=== PATIENT | female | born 1965 | race Caucasian/White ===

== ENCOUNTER 2017-04-22 08:55 | Day surgery (SDC) | payer OTHER ==
[~2017-04-22] VITALS: Ht 157.5 cm; Wt 109.0 kg
[~2017-04-22 08:55] MED LIST: ADVAIR; ALBU90OI INH; ALBU90OI6 INH; ALBUTEROL; AMOCLA875 PO; ARIP10 PO; ASCO1ER PO; ASCO500 PO; ATEN25 PO; ATEN50; Advair Hfa 230-12 GM; BENZ100A; BENZ100A PO; BUPR150ER; CARV6.25 PO; CEPH500 PO; CETI5; CHLO25 PO; CIPR500 PO; CITA20; CITA20 PO; CLIN300 PO; CLON.1 PO; CLON.2 PO; CLON2; COMBIVENT RESPIM4 GM; CONEST.9; CRUTCH4 USE; CYCL10; CYCL10 PO; DESV50 PO; DIAZ5; DOXY100 PO; DULO60 PO; ERGO400 PO; ESCI10; ESCI20 PO; FISH1000 PO; FLUSAL2505 INH; FURO40 PO; Flonase 0.05% N16 GM; Fortamet500 MG; GUAPSEER PO; HYDACE10B; HYDACE5 PO; HYDACE7.5 PO; HYDHCL25; HYDHCL25 PO; HYDPAM25 PO; HYDPAM50; HYDPAM50 PO; IBUP800; IBUP800 PO; Ipratr-Albuterol3 ML IH; Keflex500 MG PO; LOPE2C PO; MELO7.5 PO; METPRE4DP PO; MINO100 PO; MUPI2TO TOP; Multivitamins1 EACH PO; NAPR500 PO; NAPR550 PO; ONDA4 PO; OXYACE5T PO; OXYC30 PO; OXYCODONE; PHENA200 PO; POTCHL20ER PO; PRED10 PO; PROACE100 PO; PROM25 PO; PSEU120ER PO; RXHYDACE PO; RXONDA4ODT MM; RXOXYACE PO; RXPHEN200 PO; RXPROACE PO; RXTRAM50 PO; SILSUL1TC TOP; TIOT18; TRAM50 PO; Ultram50 MG PO; VARE1 PO; Vibramycin100 MG PO; Voltaren100 GM; WATER PILL; [UNRECOGNIZED DRUG - REMARK]; [UNRECOGNIZED DRUG - REMARK]; [UNRECOGNIZED DRUG - REMARK]
== END 2017-04-22 13:39 | disposition home or self-care (01) ==
LOC: ORSCSDS 08:55
PROVIDERS: Orthopaedic Surgery
PROC: 0RBJ4ZZ Excision of Right Shoulder Joint, Percutaneous Endoscopic Approach (ICD-10-PCS; principal; 2017-04-22 10:25)
PROC: 0LQ14ZZ Repair Right Shoulder Tendon, Percutaneous Endoscopic Approach (ICD-10-PCS; principal; 2017-04-22 10:25)
PROC: 0RNJ4ZZ Release Right Shoulder Joint, Percutaneous Endoscopic Approach (ICD-10-PCS; principal; 2017-04-22 10:25)
DX: M75.121 Complete rotator cuff tear or rupture of right shoulder, not specified as traumatic (principal); M75.21 Bicipital tendinitis, right shoulder; M75.41 Impingement syndrome of right shoulder; J44.9 Chronic obstructive pulmonary disease, unspecified; J45.909 Unspecified asthma, uncomplicated; I10 Essential (primary) hypertension; K21.9 Gastro-esophageal reflux disease without esophagitis; G47.33 Obstructive sleep apnea (adult) (pediatric); E66.01 Morbid (severe) obesity due to excess calories; Z68.41 Body mass index [BMI] 40.0-44.9, adult; Z79.899 Other long term (current) drug therapy; Z87.891 Personal history of nicotine dependence
CPT/HCPCS: C1713; J0171; J0690; J1100; J1885; J2250; J2405; J3010; J7120

== ENCOUNTER → 2017-08-09 | Outpatient (CLI) | payer OTHER | LOC: LAB SHORT 12:59 → LAB 12:59 | DX: L08.9 Local infection of the skin and subcutaneous tissue, unspecified (principal) | CPT/HCPCS: 87070; 87205 ==

== ENCOUNTER → 2017-11-18 | Outpatient (CLI) | payer OTHER ==
[2017-11-18 18:00] LABS: Bilirubin, Urine Neg (Neg); Blood, Urine Neg (Neg); Glucose Qualitative, Urine Neg (Neg); Ketones, Urine 1+ (Neg); Leukocyte Esterase, Urine Neg (Neg); Nitrite, Urine Neg (Neg); Protein, Urine 1+ (Neg); Urobilinogen, Urine NORM (Normal)
[2017-11-18 18:09] LABS: Appearance, Urine Cloudy (Clear); Color, Urine Yellow (P-Yellow)
[2017-11-18 18:10] LABS: Amorphous Heavy (0-Heavy); Bacteria Few /hpf; Calcium Oxalate Crystals Few /hpf; Mucus Heavy (0-Heavy); Red Blood Cells, Urine 0-2 /hpf (0-2); Squamous Epithelial Cells Many /hpf (Few); White Blood Cells, Urine 0-2 /hpf (0-5)
== END ==
LOC: LAB 17:45 → LAB SHORT 17:45
PROVIDERS: Nurse Practitioner Family
DX: R35.0 Frequency of micturition (principal)
CPT/HCPCS: 81001

== ENCOUNTER → 2018-08-28 | Outpatient (CLI) | payer OTHER ==
[2018-08-31 15:07] LABS: HPV 16 Negative (Negative); HPV 18 Negative (Negative); HPV OTHER HR TYPES Negative (Negative)
== END | disposition home or self-care (01) ==
LOC: LAB 13:18 → LAB SHORT 13:18
PROVIDERS: Nurse Practitioner Family
DX: Z01.419 Encounter for gynecological examination (general) (routine) without abnormal findings (principal)
CPT/HCPCS: 87624; G0123

== ENCOUNTER → 2018-09-28 | Outpatient (CLI) | payer OTHER ==
[~2018-09-28] MED LIST changes: +ADVAIR INH; -COMBIVENT RESPIM4 GM; +COMBIVENT RESPIM4 GM INH; -FLUSAL2505 INH; +METF500 PO; +Neurontin 300300 MG PO; +OXYC30ER PO; +Percocet 10-321 EACH PO; +SUBOXONE PO; -TIOT18; +TIOT18 INH; +TRAZ100 PO; +XARELTO15 MG PO
[2018-09-30 10:06] LABS: COTININE Negative ng/mL (Cutoff=300)
== END | disposition home or self-care (01) ==
LOC: LAB SHORT 13:45 → LAB 13:45
PROVIDERS: Orthopaedic Surgery
DX: F17.200 Nicotine dependence, unspecified, uncomplicated (principal)

== ENCOUNTER 2018-11-05 08:24 | Day surgery (SDC) | payer OTHER ==
[~2018-11-05] VITALS: Ht 160 cm; Wt 100.0 kg
[~2018-11-05 08:24] MED LIST changes: -OXYC30ER PO; -Percocet 10-321 EACH PO; -XARELTO15 MG PO
--- NOTE | 2018-11-05 09:15 | NUR ---
Ambulatory in Day Surgery. Surgical site prepped with 2% Chlorhexidine cloth wipe. History, Chart, Medications and Allergies reviewed before start of procedure. Lungs clear T/O to Auscultation. Patient confirms NPO status and agrees with scheduled surgery. Patient reports completing Chlorhexadine shower X2 prior to admission to hospital.
--- NOTE | 2018-11-05 11:25 | NUR ---
11/05/18 1125 Darryl Gutierrez POTENTIAL TIME SURGEON COULD LEAVE [id number]
--- NOTE | 2018-11-05 12:30 | NUR ---
CARE TO YAEL NGUYEN RN XRAY DONE
--- NOTE | 2018-11-05 13:00 | NUR ---
1230-ASSUMED CARE OF PATIENT. STABLE. TRANSFERRED TO SURGICAL FLOOR.
--- NOTE | 2018-11-05 18:38 | NUR ---
SHIFT SUMMARY PT A&OX4, VSS, CBG AC CNI, S/P R TKA, AQUACEL & JURGEN WRAP. PAIN MANAGED PER EMAR. APRYL PO, DENIES N&V. AMB W/FWW & GB TO BRP/CHAIR/BED. VOIDING WELL. WCTM & TX PER EMAR UNTIL REPORT GIVEN TO ONCOMING NOC RN.
--- NOTE | 2018-11-06 02:08 | NUR ---
ASSUMED CARE OF PT. PT ALERT, ANXIOUS, SUPPORT AND REASSURANCE GIVEN. PT REP PAIN 11/07. PT MEDICATED PER EMAR. PT DENIES FURTHER NEEDS AT THIS TIME, WILL CONT TO MONITOR.
[2018-11-06 03:50] LABS: BASOPHILS ABSOLUTE AUTO 0.04 K/mm3 (0.00-0.23); BASOPHILS PERCENT AUTO 0 % (0-2); EOSINOPHILS ABSOLUTE AUTO 0.05 K/mm3 (0.00-0.68); EOSINOPHILS PERCENT AUTO 1 % (0-6); Hematocrit 35.6 % (33.0-51.0); Hemoglobin 11.7 g/dL (11.5-16.0); IMMATURE GRAN ABSOLUTE AUTO 0.04 K/mm3 (0.00-0.10); IMMATURE GRAN PERCENT AUTO 0 % (0-1); LYMPHOCYTES ABSOLUTE AUTO 1.53 K/mm3 (0.84-5.20); LYMPHOCYTES PERCENT AUTO 16 % (21-46); MONOCYTES ABSOLUTE AUTO 0.85 K/mm3 (0.16-1.47); MONOCYTES PERCENT AUTO 9 % (4-13); Mean Corpuscular HGB 28.5 pg (26.0-34.0); Mean Corpuscular HGB Conc 32.9 g/dL (31.5-36.5); Mean Corpuscular Volume 87 fL (80-100); NEUTROPHILS ABSOLUTE AUTO 7.34 K/mm3 (1.96-9.15); NEUTROPHILS PERCENT AUTO 75 % (41-73); Platelet Count 311 K/mm3 (150-400); RDW Standard Deviation 44.6 fL (35.1-46.3); Red Blood Cell Count 4.11 M/mm3 (3.80-5.20); White Blood Cell Count 9.85 K/mm3 (4.00-11.30)
[2018-11-06 04:09] LABS: Anion Gap 9 mmol/L (6-16); Blood Urea Nitrogen 17 mg/dL (8-24); CO2, Blood 25 mmol/L (21-32); Calcium, Blood 8.2 mg/dL (8.5-10.1); Chloride, Blood 102 mmol/L (98-108); Creatinine, Blood 0.95 mg/dL (0.40-1.00); Glomerular Filtration Rate >60 (60-); Glucose, Blood 138 mg/dL (70-99); Magnesium, Blood 1.7 mg/dL (1.6-2.4); Potassium, Blood 4.1 mmol/L (3.5-5.5); Sodium, Blood 136 mmol/L (136-145)
--- NOTE | 2018-11-06 05:40 | NUR ---
POD 1 S/P RIGHT TKA. PT VSS T/O NIGHT. DRESSINGS CDI. PAIN MGD PER EMAR W/REP RELIEF. PT UP OOB W/FWW+SBA; APRYL WELL. PT REMAINS ANXIOUS AT TIMES R/T PAIN, SUPPORT AND EDUCATION PROVIDED PRN T/O NIGHT. PT USING CALL LIGHT FOR ASSISTANCE, WILL CONT TO MONITOR UNTIL REP GIVEN TO ONCOMING RN.
[2018-11-06] MEDS ORDERED: OXYC30ER PO (11:33)
[2018-11-06] MEDS ORDERED: XARELTO15 MG PO (11:34)
[2018-11-06] MEDS ORDERED: Percocet 10-321 EACH PO (11:34)
--- NOTE | 2018-11-06 13:44 | NUR ---
Pt was sitting in her recliner alert and oriented. Pt provided space to reflect on her life. She discusses family dynamics, grief experiences, and her physical challenges. Pt able to verbalize her zunilda and how it helps her cope with her past challenges. Pt currently is connected to a local confucianist where she finds spiritual support. Pt verbalizes gratitude for parental support through her struggles. Her goal is to get both her knees done and find work to support herself. I offered to keep the pt in my prayers. I will remain available.
--- NOTE | 2018-11-06 15:24 | NUR ---
DISCHARGE: PT EATING AND DRINKING WELL. VOIDING, PASSING GAS. PT REPORTS PAIN MUCH BETTER THAN THIS AM. TOLERABLE ON PO PAIN MEDICATION. PT BEEN CLEARED BY THERAPY TO GO HOME. PT/FAMILY REPORTS UNDERSTANDING OF DISCHARGE INSTRUCTIONS INCLUDING USING WALKER WITH ALL ACTIVITY AND TAKING SHORT FREQUENT WALKS. PT SENT WITH SCRIPTS, ICE MACHINE, DRESSING SUPPLIES. PT REPORTS HAVING APPR EQUIP AT HOME. IV OUT EARLIER NO OTHER IV'S IN PLACE. TIMES OF LAST DOSE OF MEDICATION WRITTEN ON MEDICATION LIST FOR PT.
== END 2018-11-06 15:30 | disposition home or self-care (01) ==
LOC: ORSCMMR 08:24 → ORD 10:00 → SURS 12:54 → ORSCMMR 11-06 15:30
PROVIDERS: Orthopaedic Surgery
PROC: 0SRC0JA Replacement of Right Knee Joint with Synthetic Substitute, Uncemented, Open Approach (ICD-10-PCS; principal; 2018-11-05 10:00)
DX: M17.11 Unilateral primary osteoarthritis, right knee (principal); Z01.818 Encounter for other preprocedural examination; I10 Essential (primary) hypertension; J44.9 Chronic obstructive pulmonary disease, unspecified; G47.33 Obstructive sleep apnea (adult) (pediatric); E11.9 Type 2 diabetes mellitus without complications; E78.5 Hyperlipidemia, unspecified; Z79.899 Other long term (current) drug therapy; E66.01 Morbid (severe) obesity due to excess calories; Z68.41 Body mass index [BMI] 40.0-44.9, adult
CPT/HCPCS: 36415; 73560-RT; 80048; 82947; 83735; 85025; 86850; 86900; 86901; 88300; 94760; 97110; 97116; 97161; 97530; C1776; J0171; J0690; J0735; J1170; J1885; J2250; J2405; J2704; J2795; J7120

== ENCOUNTER 2019-02-09 06:44 | Day surgery (SDC) | payer OTHER ==
[~2019-02-09] VITALS: Ht 157.5 cm; Wt 102.6 kg
[~2019-02-09 06:44] MED LIST changes: +OXYC30ER PO; +Percocet 10-321 EACH PO; +XARELTO15 MG PO; +Zantac150 MG PO
--- NOTE | 2019-02-09 07:03 | NUR ---
History, Chart, Medications and Allergies reviewed before start of procedure. Patient confirms NPO status and agrees with scheduled surgery. Lungs clear T/O to Auscultation. Pre-Op teaching done. Pt verbalizes understanding. Patient reports completing Chlorhexadine shower X2 prior to admission to hospital. NO JEWELRY, HEARING DEVICES, CONTACTS PRESENT AT TIME OF SURGERY. PATIENT STATES SHE PLACED HER GLASSES IN WITH HER BELONGINGS IN HER BAG.
[2019-02-09] MEDS ORDERED: METF500 PO (07:13)
--- NOTE | 2019-02-09 07:47 | NUR ---
PATIENT IS CONSIDERED LOW RISK AND WILL NOT BE PLACED IN ISOLATION. TWO NEGATIVE NARES SWABS COMPLETED AND TODAY WE COMPLETED A SWAB OF HER THROAT SO THAT SHE CAN OFFICIALLY BE CLEARED FOR FUTURE VISITS.
--- NOTE | 2019-02-09 08:11 | NUR ---
PATIENT UP TO BR FOR UNMEASURED VOID.
--- NOTE | 2019-02-09 11:30 | NUR ---
PT TRANSFERRED TO ROOM ON OWN BED, A/0 X 4, PLEASANT, DENIES N/V, RATE PAIN AT 8/10. WILL PROVIDE ANALGESIA PER MAR. PT'S MOTHER WITH PT. POST OP VS COMMENCED AND STABLE.
--- NOTE | 2019-02-09 18:03 | NUR ---
summary: vss, no acute changes, a/0 x 4, pleasant/cooperative. pt tolerating po intake, voiding >400 ml this shift. Patient worked with PT x 1 this afternoon, ambulated in hallway with RN x 1, up to bathroom x 3. pt rates pain at 6-8/10, reassessed at 5/10 at lowest following analgesia per mar. Operative knee dressing c/d/i, no shadowing. pt states she is pleased with her condition with this surgery. pt up in chair for meals.
--- NOTE | 2019-02-10 05:18 | NUR ---
SUMMARY: POD [address] SORENSEN. VSS, AFEBRILE, ROOM AIR. TOLERATING REG DIET, VOIDING AND UP IN ROOM WITH 1 ASSIST USING GB AND FWW. PT PAIN CONTROLLED WITH 10MG OXYCODONE X3 THIS SHIFT AND 1MG DILAUDID THIS SHIFT. PT APPEARS ANXIOUS AND EMOTIONAL AT TIMES WITH PAIN AND ADL'S BUT IS EASILY REASSURED. ANTICIPATE PT/OT AND OOB ACTIVITY WITH PROBABLE DC HOME LATER THIS DAY.
[2019-02-10 05:40] LABS: BASOPHILS ABSOLUTE AUTO 0.02 K/mm3 (0.00-0.23); BASOPHILS PERCENT AUTO 0 % (0-2); EOSINOPHILS PERCENT AUTO 0 % (0-6); Hematocrit 34.8 % (33.0-51.0); Hemoglobin 11.5 g/dL (11.5-16.0); IMMATURE GRAN ABSOLUTE AUTO 0.07 K/mm3 (0.00-0.10); IMMATURE GRAN PERCENT AUTO 1 % (0-1); LYMPHOCYTES PERCENT AUTO 14 % (21-46); MONOCYTES ABSOLUTE AUTO 0.92 K/mm3 (0.16-1.47); MONOCYTES PERCENT AUTO 6 % (4-13); Mean Corpuscular Volume 88 fL (80-100); Mean Platelet Volume 8.9 fL (9.1-12.4); NEUTROPHILS ABSOLUTE AUTO 12.31 K/mm3 (1.96-9.15); NEUTROPHILS PERCENT AUTO 80 % (41-73); Platelet Count 359 K/mm3 (150-400); RDW Coefficient Variation 13.7 % (11.7-14.2); RDW Standard Deviation 44.2 fL (35.1-46.3); Red Blood Cell Count 3.97 M/mm3 (3.80-5.20); White Blood Cell Count 15.42 K/mm3 (4.00-11.30)
[2019-02-10 06:05] LABS: Anion Gap 7 mmol/L (6-16); Blood Urea Nitrogen 12 mg/dL (8-24); Bun/Creatinine Ratio 14.8 (12.0-20.0); CO2, Blood 26 mmol/L (21-32); Calcium, Blood 8.6 mg/dL (8.5-10.1); Chloride, Blood 107 mmol/L (98-108); Creatinine, Blood 0.81 mg/dL (0.40-1.00); Glomerular Filtration Rate >60 (60-); Glucose, Blood 136 mg/dL (70-99); Potassium, Blood 3.9 mmol/L (3.5-5.5); Sodium, Blood 140 mmol/L (136-145)
[2019-02-10] MEDS ORDERED: Percocet 5-3251 EACH PO (12:14)
[2019-02-10] MEDS ORDERED: Celebrex200 MG PO (12:16)
[2019-02-10] MEDS ORDERED: ASPI81CH PO (12:16)
--- NOTE | 2019-02-10 13:31 | NUR ---
DISCHARGE PT VERY ANXIOUS AT TIMES R/T D/C. CLEARED THERAPY, TOLERATING DIET, VOIDING, NO LONGER CRYING IN REGAURDS TO PAIN BUT STILL RATES PAIN 8-9/10. SCRIPTS AND DRSGS GIVEN. PT TO EMPLOYMENT LEGAL ASSISTANT EXTENDED RELEASE OXYCOTIN FROM DR SORENSEN OFFICE PER ARRANGEMENTS BETWEEN HER AND
== END 2019-02-10 13:15 | disposition home or self-care (01) ==
LOC: ORSCMMR 06:44 → ORD 08:15 → SURS 11:20 → ORSCMMR 02-10 13:15
PROVIDERS: Orthopaedic Surgery
PROC: 0SRD0JA Replacement of Left Knee Joint with Synthetic Substitute, Uncemented, Open Approach (ICD-10-PCS; principal; 2019-02-09 08:15)
DX: M17.12 Unilateral primary osteoarthritis, left knee (principal); Z01.818 Encounter for other preprocedural examination; E66.9 Obesity, unspecified; Z68.41 Body mass index [BMI] 40.0-44.9, adult; Z87.891 Personal history of nicotine dependence; Z79.899 Other long term (current) drug therapy
CPT/HCPCS: 36415; 73560-LT; 80048; 82947; 85025; 86850; 86900; 86901; 87081; 88300; 97110; 97116; 97161; 97530; C1776; J0171; J0690; J0735; J1100; J1170; J1885; J2250; J2405; J2704; J2795; J3010; J7120; Q0163

== ENCOUNTER → 2019-07-05 | Outpatient (CLI) | payer OTHER ==
[~2019-07-05] MED LIST changes: +ASPI81CH PO; +Celebrex200 MG PO; +Percocet 5-3251 EACH PO
[2019-07-05 16:23] LABS: Source, Urine Clean Catch
[2019-07-05 18:06] LABS: Bilirubin, Urine Neg (Neg); Blood, Urine Neg (Neg); Glucose Qualitative, Urine Neg (Neg); Ketones, Urine Neg (Neg); Leukocyte Esterase, Urine Neg (Neg); Nitrite, Urine Neg (Neg); Protein, Urine Neg (Neg); Specific Gravity, Urine 1.015 (1.003-1.022); Urobilinogen, Urine NORM (Normal)
[2019-07-05 18:20] LABS: Appearance, Urine Clear (Clear); Color, Urine Yellow (P-Yellow)
== END | disposition home or self-care (01) ==
LOC: LAB SHORT 16:22 → OLS 16:22
PROVIDERS: Nurse Practitioner Family
DX: R30.0 Dysuria (principal); R35.0 Frequency of micturition
CPT/HCPCS: 81003

== ENCOUNTER → 2020-01-15 | Outpatient (CLI) | payer OTHER ==
[2020-01-15 14:05] LABS: BASOPHILS ABSOLUTE AUTO 0.06 K/mm3 (0.00-0.23); BASOPHILS PERCENT AUTO 1 % (0-2); EOSINOPHILS ABSOLUTE AUTO 0.12 K/mm3 (0.00-0.68); EOSINOPHILS PERCENT AUTO 2 % (0-6); Hematocrit 41.3 % (33.0-51.0); Hemoglobin 12.9 g/dL (11.5-16.0); IMMATURE GRAN ABSOLUTE AUTO 0.01 K/mm3 (0.00-0.10); IMMATURE GRAN PERCENT AUTO 0 % (0-1); LYMPHOCYTES ABSOLUTE AUTO 1.65 K/mm3 (0.84-5.20); LYMPHOCYTES PERCENT AUTO 26 % (21-46); MONOCYTES ABSOLUTE AUTO 0.36 K/mm3 (0.16-1.47); MONOCYTES PERCENT AUTO 6 % (4-13); Mean Corpuscular HGB 27.6 pg (26.0-34.0); Mean Corpuscular HGB Conc 31.2 g/dL (31.5-36.5); Mean Corpuscular Volume 88 fL (80-100); Mean Platelet Volume 9.1 fL (9.1-12.4); NEUTROPHILS ABSOLUTE AUTO 4.18 K/mm3 (1.96-9.15); NEUTROPHILS PERCENT AUTO 66 % (41-73); Platelet Count 367 K/mm3 (150-400); RDW Coefficient Variation 13.9 % (11.7-14.2); Red Blood Cell Count 4.68 M/mm3 (3.80-5.20); White Blood Cell Count 6.38 K/mm3 (4.00-11.30)
[2020-01-15 14:18] LABS: Alanine Aminotransfer (ALT/SGP 36 U/L (12-78); Albumin, Blood 3.6 g/dL (3.4-5.0); Albumin/Globulin Ratio 0.9 (0.8-1.8); Alk Phos 132 U/L (50-136); Anion Gap 5 mmol/L (6-16); Aspartate Aminotrans (AST/SGOT 25 U/L (12-37); Bilirubin, Total 0.5 mg/dL (0.1-1.0); Blood Urea Nitrogen 16 mg/dL (8-24); Bun/Creatinine Ratio 16.2 (12.0-20.0); CO2, Blood 31 mmol/L (21-32); Chloride, Blood 104 mmol/L (98-108); Creatinine, Blood 0.99 mg/dL (0.40-1.00); Globulin, Blood 3.9 g/dL (2.2-4.0); Glomerular Filtration Rate >60 (60-); Glucose, Blood 103 mg/dL (70-99); Potassium, Blood 3.9 mmol/L (3.5-5.5); Sodium, Blood 140 mmol/L (136-145); Total Protein, Blood 7.5 g/dL (6.4-8.2); Troponin I <0.015 ng/mL (0.000-0.040)
== END | disposition home or self-care (01) ==
LOC: LAB 13:10 → LAB SHORT 13:10
PROVIDERS: Nurse Practitioner Family
DX: R03.0 Elevated blood-pressure reading, without diagnosis of hypertension (principal); R07.89 Other chest pain; R06.02 Shortness of breath; R60.0 Localized edema
CPT/HCPCS: 80053; 83880; 84484; 85025; 85379

== ENCOUNTER → 2020-06-23 | Outpatient (CLI) | payer OTHER | END | disposition home or self-care (01) | LOC: LAB SHORT 10:06 → LAB 10:06 | DX: B37.0 Candidal stomatitis (principal) | CPT/HCPCS: 87102; 87106 ==

== ENCOUNTER → 2020-08-17 | Outpatient (CLI) | payer OTHER ==
[2020-08-18 10:51] LABS: Candida species (DNA Probe) Negative (NEGATIVE); G. vaginalis (DNA Probe) Negative (NEGATIVE); T. vaginalis (DNA Probe) Negative (NEGATIVE)
== END ==
LOC: LAB SHORT 11:00 → LAB 11:00
PROVIDERS: Nurse Practitioner Family
DX: R10.2 Pelvic and perineal pain (principal); R30.0 Dysuria
CPT/HCPCS: 87086; 87480; 87510; 87660

== ENCOUNTER → 2020-08-17 | Outpatient (CLI) | payer OTHER | LOC: LAB SHORT 10:40 → PLD 10:40 | DX: R30.0 Dysuria (principal) | CPT/HCPCS: 87086 ==

== ENCOUNTER 2021-03-01 17:43 | Emergency (ER) | payer OTHER ==
[~2021-03-01] VITALS: Ht 160 cm; Wt 111.1 kg
[2021-03-01 18:31] LABS: BASOPHILS ABSOLUTE AUTO 0.06 K/mm3 (0.00-0.23); BASOPHILS PERCENT AUTO 1 % (0-2); EOSINOPHILS PERCENT AUTO 1 % (0-6); Hematocrit 36.3 % (33.0-51.0); Hemoglobin 11.8 g/dL (11.5-16.0); IMMATURE GRAN ABSOLUTE AUTO 0.03 K/mm3 (0.00-0.10); IMMATURE GRAN PERCENT AUTO 0 % (0-1); LYMPHOCYTES ABSOLUTE AUTO 1.79 K/mm3 (0.84-5.20); LYMPHOCYTES PERCENT AUTO 20 % (21-46); MONOCYTES ABSOLUTE AUTO 0.62 K/mm3 (0.16-1.47); MONOCYTES PERCENT AUTO 7 % (4-13); Mean Corpuscular HGB 28.4 pg (26.0-34.0); Mean Corpuscular HGB Conc 32.5 g/dL (31.5-36.5); Mean Corpuscular Volume 88 fL (80-100); Mean Platelet Volume 9.3 fL (9.1-12.4); NEUTROPHILS ABSOLUTE AUTO 6.58 K/mm3 (1.96-9.15); NEUTROPHILS PERCENT AUTO 72 % (41-73); Platelet Count 425 K/mm3 (150-400); RDW Coefficient Variation 13.6 % (11.7-14.2); RDW Standard Deviation 43.6 fL (35.1-46.3); Red Blood Cell Count 4.15 M/mm3 (3.80-5.20); White Blood Cell Count 9.18 K/mm3 (4.00-11.30)
[2021-03-01 18:49] LABS: Alanine Aminotransfer (ALT/SGP 30 U/L (12-78); Albumin, Blood 3.2 g/dL (3.4-5.0); Albumin/Globulin Ratio 0.8 (0.8-1.8); Alk Phos 127 U/L (50-136); Anion Gap 4 mmol/L (6-16); Aspartate Aminotrans (AST/SGOT 21 U/L (12-37); Bilirubin, Total 0.5 mg/dL (0.1-1.0); Blood Urea Nitrogen 16 mg/dL (8-24); Bun/Creatinine Ratio 19.9 (12.0-20.0); CO2, Blood 31 mmol/L (21-32); Calcium, Blood 9.5 mg/dL (8.5-10.1); Chloride, Blood 104 mmol/L (98-108); Globulin, Blood 4.1 g/dL (2.2-4.0); Glomerular Filtration Rate >60 (60-); Glucose, Blood 109 mg/dL (70-99); Sodium, Blood 139 mmol/L (136-145); Total Protein, Blood 7.3 g/dL (6.4-8.2)
== END 2021-03-01 21:22 | disposition home or self-care (01) ==
LOC: ER 17:43
PROVIDERS: Physician Assistant
DX: R60.0 Localized edema (principal); Z88.8 Allergy status to other drugs, medicaments and biological substances; Z88.2 Allergy status to sulfonamides; Z88.5 Allergy status to narcotic agent; Z88.1 Allergy status to other antibiotic agents; Z79.899 Other long term (current) drug therapy; Z79.84 Long term (current) use of oral hypoglycemic drugs; Z79.82 Long term (current) use of aspirin; J45.909 Unspecified asthma, uncomplicated; I10 Essential (primary) hypertension; F17.290 Nicotine dependence, other tobacco product, uncomplicated
CPT/HCPCS: 36415; 71046; 80053; 83880; 85025; 93971; 99284-25

== ENCOUNTER 2021-05-15 20:41 | Emergency (ER) | payer OTHER ==
[~2021-05-15] VITALS: Ht 160 cm; Wt 113.4 kg
[2021-05-15] MEDS ORDERED: OMEP20ER (21:40)
[2021-05-15] MEDS ORDERED: IBUP800 PO (21:41)
[2021-05-15] MEDS ORDERED: Flonase 0.05% N16 GM (21:41)
[2021-05-15] MEDS ORDERED: XARELTO15 MG PO (22:21)
== END 2021-05-15 22:38 | disposition home or self-care (01) ==
LOC: ER 20:41
DX: M79.89 Other specified soft tissue disorders (principal); J45.909 Unspecified asthma, uncomplicated; I10 Essential (primary) hypertension; M19.90 Unspecified osteoarthritis, unspecified site; M79.7 Fibromyalgia; Z88.1 Allergy status to other antibiotic agents; Z88.8 Allergy status to other drugs, medicaments and biological substances; Z88.2 Allergy status to sulfonamides; Z79.899 Other long term (current) drug therapy; Z79.84 Long term (current) use of oral hypoglycemic drugs; Z79.82 Long term (current) use of aspirin
CPT/HCPCS: 99281; A9270

== ENCOUNTER 2021-06-07 15:59 | Emergency (ER) | payer OTHER ==
[~2021-06-07] VITALS: Ht 160 cm; Wt 112.5 kg
[~2021-06-07 15:59] MED LIST changes: +OMEP20ER
[2021-06-07 16:43] LABS: BASOPHILS ABSOLUTE AUTO 0.05 K/mm3 (0.00-0.23); BASOPHILS PERCENT AUTO 1 % (0-2); EOSINOPHILS ABSOLUTE AUTO 0.11 K/mm3 (0.00-0.68); EOSINOPHILS PERCENT AUTO 1 % (0-6); Hematocrit 36.9 % (33.0-51.0); Hemoglobin 11.8 g/dL (11.5-16.0); IMMATURE GRAN ABSOLUTE AUTO 0.03 K/mm3 (0.00-0.10); IMMATURE GRAN PERCENT AUTO 0 % (0-1); LYMPHOCYTES PERCENT AUTO 18 % (21-46); MONOCYTES ABSOLUTE AUTO 0.55 K/mm3 (0.16-1.47); MONOCYTES PERCENT AUTO 6 % (4-13); Mean Corpuscular HGB 27.4 pg (26.0-34.0); Mean Corpuscular Volume 86 fL (80-100); Mean Platelet Volume 8.7 fL (9.1-12.4); NEUTROPHILS ABSOLUTE AUTO 6.86 K/mm3 (1.96-9.15); NEUTROPHILS PERCENT AUTO 74 % (41-73); Platelet Count 409 K/mm3 (150-400); RDW Coefficient Variation 15.4 % (11.7-14.2); RDW Standard Deviation 48.4 fL (35.1-46.3)
[2021-06-07 16:56] LABS: Alanine Aminotransfer (ALT/SGP 34 U/L (12-78); Albumin, Blood 3.5 g/dL (3.4-5.0); Albumin/Globulin Ratio 0.8 (0.8-1.8); Alk Phos 126 U/L (50-136); Anion Gap 3 mmol/L (6-16); Aspartate Aminotrans (AST/SGOT 20 U/L (12-37); Bilirubin, Total 0.3 mg/dL (0.1-1.0); Blood Urea Nitrogen 17 mg/dL (8-24); Bun/Creatinine Ratio 19.4 (12.0-20.0); CO2, Blood 29 mmol/L (21-32); Chloride, Blood 105 mmol/L (98-108); Creatinine, Blood 0.88 mg/dL (0.40-1.00); Globulin, Blood 4.3 g/dL (2.2-4.0); Glomerular Filtration Rate >60 (60-); Glucose, Blood 122 mg/dL (70-99); Sodium, Blood 137 mmol/L (136-145); Total Protein, Blood 7.8 g/dL (6.4-8.2)
== END 2021-06-07 20:14 | disposition home or self-care (01) ==
LOC: ER 15:59
PROVIDERS: Physician Assistant
DX: R60.0 Localized edema (principal); R07.9 Chest pain, unspecified; Z88.2 Allergy status to sulfonamides; I10 Essential (primary) hypertension; Z88.8 Allergy status to other drugs, medicaments and biological substances; Z79.899 Other long term (current) drug therapy
CPT/HCPCS: 36415; 80053; 85025; 93005; 93010; 99284-25

== ENCOUNTER → 2023-02-12 | Outpatient (CLI) | payer OTHER | LOC: LAB SHORT 13:45 → LAB 13:45 | DX: R30.0 Dysuria (principal) | CPT/HCPCS: 87086 ==

== ENCOUNTER → 2023-07-02 | Outpatient (CLI) | payer OTHER | LOC: LAB SHORT 16:30 → LAB 16:30 | DX: M79.89 Other specified soft tissue disorders (principal) | CPT/HCPCS: 87070; 87075; 87077; 87147; 87186; 87205 ==

== ENCOUNTER 2024-08-03 12:31 | Day surgery (SDC) | payer OTHER ==
[~2024-08-03] VITALS: Ht 152.4 cm; Wt 107.7 kg
[2024-08-03] VITALS (10 sets, daily range): BP systolic 145–162; BP diastolic 86–97
[~2024-08-03 12:31] MED LIST changes: +DIAZ10 PO; +Estrace Vagin42.5 GM; +METH10 PO; +NURTEC ODT75 MG PO; +Prilosec Otc20 MG PO; +SUBOXONE 12 MG1 EACH; +TRAZ50 PO
[2024-08-03] MEDS ORDERED: Lactated Ringer's 1,000 ML IV SCH (13:05)
[2024-08-03] MEDS ORDERED: CeFAZolin Sodium 2,000 MG in NS 100 ML IV SCH (13:05)
[2024-08-03] MEDS ORDERED: FentaNYL Citrate 50 MCG/ML 2 ML Injection IV PRN ×4 (14:40→17:20)
[2024-08-03] MEDS ORDERED: HYDROmorphone HCl/Pf 1MG SYR IV PRN ×4 (14:40→17:20)
[2024-08-03] MEDS ORDERED: Ondansetron HCl 2 MG / ML 2ML Vial IV PRN ×2 (14:40→17:20)
[2024-08-03] MEDS ORDERED: Bupivacaine 0.5% HCl 5 MG/ML 30MLVIAL ONE (15:14)
[2024-08-03] MEDS ORDERED: Midazolam HCl 1MG / ML 2ML Vial ONE (15:22)
[2024-08-03] MEDS ORDERED: FentaNYL Citrate 50 MCG/ML 2 ML Injection ONE ×2 (15:22→16:17)
[2024-08-03] MEDS ORDERED: propofoL 20 ML IV ONE ×3 (15:41→17:17)
[2024-08-03] MEDS ORDERED: Rocuronium Bromide 10 MG/ML 5ML Injection IV ONE (15:41)
--- NOTE | 2024-08-03 15:46 | NUR ---
History, Chart, Medications and Allergies reviewed before start of procedure. Pre-Op teaching done. Pt verbalizes understanding. Patient States Post-Procedure ride home has been arranged. Pt belongings to OR with pt. Lip ring, tongue ring and pinky ring to PACU with pt label. One hair clip and 3 yordy-pins to PACU with pt label. Pt upper and lower dentures in denture cup with denture cleansing tablet to PACU with pt label.
[2024-08-03] MEDS ORDERED: Ondansetron HCl 2 MG / ML 2ML Vial ONE (16:49)
[2024-08-03] MEDS ORDERED: Labetalol HCL 5 MG/ML 4ML Injection (Single Dose) ONE (16:49)
[2024-08-03] MEDS ORDERED: Dexamethasone Sod Phos 10 MG/ML 1ML VIAL ONE (16:49)
[2024-08-03] MEDS ORDERED: Sugammadex Sodium 200 MG/2ML SDV (100 MG/ML) ONE (17:08)
[2024-08-03] MEDS ORDERED: HYDROcodone 7.5-APAP 325 TAB PO PRN (17:55)
== END 2024-08-03 23:37 | disposition home or self-care (01) ==
LOC: ORSCMMR 12:31 → ORD 13:30 → ORSCMMR 23:37
PROVIDERS: Orthopaedic Surgery
PROC: 0PSH04Z Reposition Right Radius with Internal Fixation Device, Open Approach (ICD-10-PCS; principal; 2024-08-03 13:30)
DX: S52.571A Other intraarticular fracture of lower end of right radius, initial encounter for closed fracture (principal); W01.0XXA Fall on same level from slipping, tripping and stumbling without subsequent striking against object, initial encounter; E66.01 Morbid (severe) obesity due to excess calories; Z68.41 Body mass index [BMI] 40.0-44.9, adult; Z96.653 Presence of artificial knee joint, bilateral; Z79.84 Long term (current) use of oral hypoglycemic drugs; J44.89 Other specified chronic obstructive pulmonary disease; K21.9 Gastro-esophageal reflux disease without esophagitis; Z79.899 Other long term (current) drug therapy
CPT/HCPCS: C1713; J0690; J1100; J2250; J2405; J2704; J3010; J7120

== ENCOUNTER → 2024-10-12 | Outpatient (CLI) | payer OTHER | LOC: LAB SHORT 17:23 → LAB 17:23 | DX: R30.0 Dysuria (principal) | CPT/HCPCS: 87086 ==

== ENCOUNTER 2024-12-07 11:29 | Day surgery (SDC) | payer OTHER ==
[~2024-12-07] VITALS: Ht 160 cm; Wt 108.0 kg
[~2024-12-07 11:29] MED LIST changes: +DULO30 PO; +Dexamethasone Sod Phos 10 MG/ML 1ML VIAL XX ONE; +Rocuronium Bromide 10 MG/ML 5ML Injection IV ONE
[2024-12-07 13:24] VITALS: BP 116/71
--- NOTE | 2024-12-07 13:30 | NUR ---
Ambulatory in Day Surgery History, Chart, Medications and Allergies reviewed before start of procedure. Pre-Op teaching done. Pt verbalizes understanding. Patient States Post-Procedure ride home has been arranged.
[2024-12-07] MEDS ORDERED: CeFAZolin Sodium 2,000 MG in NS 100 ML IV SCH (14:05)
[2024-12-07] MEDS ORDERED: Bupivacaine 0.5% HCl 5 MG/ML 30MLVIAL ONE (15:23)
[2024-12-07] MEDS ORDERED: FentaNYL Citrate 50 MCG/ML 2 ML Injection ONE (16:30)
[2024-12-07] MEDS ORDERED: Labetalol HCL 5 MG/ML 4ML Injection (Single Dose) ONE (16:45)
[2024-12-07] MEDS ORDERED: Metoclopramide HCl 5MG / ML 2ML Vial ONE (16:54)
[2024-12-07] MEDS ORDERED: Ondansetron HCl 2 MG / ML 2ML Vial ONE (16:54)
[2024-12-07] MEDS ORDERED: Metoclopramide HCl 5MG / ML 2ML Vial IV PRN (17:05)
[2024-12-07] MEDS ORDERED: Labetalol HCL 5 MG/ML 4ML Injection (Single Dose) IV PRN (17:05)
[2024-12-07] MEDS ORDERED: HYDROmorphone HCl/Pf 1MG SYR IV PRN ×2 (17:05→17:15)
[2024-12-07] MEDS ORDERED: FentaNYL Citrate 50 MCG/ML 2 ML Injection IV PRN ×2 (17:05→17:10)
[2024-12-07] MEDS ORDERED: Sugammadex Sodium 200 MG/2ML SDV (100 MG/ML) ONE (17:06)
[2024-12-07] MEDS ORDERED: Morphine Sulfate 4 MG/1 ML Injection IV PRN (17:10)
[2024-12-07] MEDS ORDERED: Ondansetron HCl 2 MG / ML 2ML Vial IV PRN (17:10)
[2024-12-07 17:25] VITALS: BP 158/108
[2024-12-07 17:30] VITALS: BP 147/98
[2024-12-07 17:35] VITALS: BP 141/92
[2024-12-07] MEDS ORDERED: Ketorolac Tromethamine 30mg Vial IV ONE (17:35)
[2024-12-07 17:45] VITALS: BP 147/99
[2024-12-07 18:05] VITALS: BP 140/89
== END 2024-12-07 23:01 | disposition home or self-care (01) ==
LOC: ORSCMMR 11:29 → ORD 12:30 → ORSCMMR 23:01
PROVIDERS: Orthopaedic Surgery
PROC: 0QP104Z Removal of Internal Fixation Device from Sacrum, Open Approach (ICD-10-PCS; principal; 2024-12-07 17:00)
DX: S52.591D Other fractures of lower end of right radius, subsequent encounter for closed fracture with routine healing (principal); T84.84XA Pain due to internal orthopedic prosthetic devices, implants and grafts, initial encounter; T85.698A Other mechanical complication of other specified internal prosthetic devices, implants and grafts, initial encounter; K21.9 Gastro-esophageal reflux disease without esophagitis; G47.33 Obstructive sleep apnea (adult) (pediatric); Z79.899 Other long term (current) drug therapy; J45.909 Unspecified asthma, uncomplicated; Z68.41 Body mass index [BMI] 40.0-44.9, adult; Z96.653 Presence of artificial knee joint, bilateral; F17.290 Nicotine dependence, other tobacco product, uncomplicated
CPT/HCPCS: J0690; J1100; J2405; J2704; J2765; J3010; J7120